=== PATIENT | female | born 1975 | race Caucasian/White ===

== ENCOUNTER 2021-11-27 22:10 | Emergency (ER) | payer OTHER ==
[2021-11-27] MEDS ORDERED: Morphine 4 MG/ML VIAL IVPUSH ONE (22:34)
[2021-11-27] MEDS ORDERED: Ondansetron 4 MG/2 ML SDV IVPUSH ONE (22:34)
[2021-11-27] MEDS ORDERED: Sodium Chloride 0.9% 1,000 ML IV SCH (22:45)
== END 2021-11-27 23:47 | disposition home or self-care (01) ==
LOC: FB.ED 22:10
DX: K52.9 Noninfective gastroenteritis and colitis, unspecified (principal)
CPT/HCPCS: 36415; 80048; 85025; 96374; 96375; 99284-25; J2270; J2405; J7030